=== PATIENT | male | born 1985 | race Hispanic/Latino ===

== ENCOUNTER 2018-08-13 | Emergency (ER) | payer SELFPAY ==
[2018-08-13 01:32] LABS: Absolute Lymphocytes (CBC) 3.2 K/uL (0.7-4.9); Absolute Monocytes 0.6 K/uL (0.1-1.3); Absolute Neutrophil 5.6 K/uL (1.8-8.0); Barbiturates NEGATIVE (NEGATIVE); Basophils % 0.5 % (0-1.3); Benzodiazepines NEGATIVE (NEGATIVE); Cocaine NEGATIVE (NEGATIVE); Hematocrit 42.3 % (39.6-49.0); Lymphocytes % 32.9 % (15.3-44.8); MCH 29.6 pg (27.0-35.0); MCV 84.9 fL (80-100); METHAMPHETAM NEGATIVE (NEGATIVE); MPV 9.1 fL (7.6-11.3); Methadone NEGATIVE (NEGATIVE); Monocytes % 6.3 % (3.3-12.3); Opiates NEGATIVE (NEGATIVE); Phencyclidine NEGATIVE (NEGATIVE); Protime INR 1.08; RBC Red Blood Cell Count 4.99 M/uL (4.33-5.43); THC Cannibis NEGATIVE (NEGATIVE)
[2018-08-13 01:41] LABS: ALT/SGPT 31 U/L (12-78); AST/SGOT 13 U/L (15-37); Albumin 3.5 g/dL (3.4-5.0); Alkaline Phosphatase 75 U/L (45-117); BUN Blood Urea Nitrogen 14 mg/dL (7-18); Bicarbonate 29 mmol/L (21-32); Bilirubin Direct 0.1 mg/dL (0-0.2); Bilirubin Total 0.3 mg/dL (0.2-1.0); Glucose Level 112 mg/dL (74-106); Potassium 3.5 mmol/L (3.5-5.1); Protein, Total 7.3 g/dL (6.4-8.2); Sodium Level 142 mmol/L (136-145); Troponin (Emerg Dept Use Only) < 0.02 ng/mL (0.0-0.045)
[2018-08-13 01:46] LABS: Urine Blood 1+ (NEG); Urine Glucose NEGATIVE (NEG)
[2018-08-13 01:47] LABS: Urine Protein NEGATIVE (NEG)
--- NOTE | 2018-08-13 03:25 | ER ---
Nurse's Notes [facility] Name: Toni Crockett Age: 33 yrs Sex: Male : 1985 Arrival Date: 08/13/2018 Time: 00:03 Bed 18 Private MD: Diagnosis: Chest pain;Intermittent palpitations Presentation: 08/13 00:05 Presenting complaint: Patient states: he had an episode of chest pain tonight and got bb worried because he had similar symptoms two other times in the last month denies SOB, nausea, pain is non-radiating and currently has resolved. Transition of care: patient was not received from another setting of care. Onset of symptoms was August 13, 2018. Risk Assessment: Do you want to hurt yourself or someone else? Patient reports no desire to harm self or others. Initial Sepsis Screen: Does the patient meet any 2 criteria? No. Patient's initial sepsis screen is negative. Does the patient have a suspected source of infection? No. Patient's initial sepsis screen is negative. Care prior to arrival: None. 00:05 Method Of Arrival: Ambulatory bb 00:05 Acuity: FELIX 3 bb Triage Assessment: 00:35 General: Appears in no apparent distress. Behavior is calm, cooperative. Pain: Denies bb pain. Neuro: Level of Consciousness is awake, alert, obeys commands, Oriented to person, place, time, Appropriate for age. Cardiovascular: Heart tones S1 S2 present Capillary refill < 3 seconds Patient's skin is warm and dry. Pulses are all present. Edema is absent. Rhythm is sinus rhythm. Respiratory: Respiratory effort is even, unlabored. GI: No signs and/or symptoms were reported involving the gastrointestinal system. Derm: Skin is pink, warm \T\ dry. Musculoskeletal: Circulation, motion, and sensation intact. Historical: - Allergies: 00:35 No Known Allergies; bb - Home Meds: 00:35 None [Active]; bb - PMHx: 00:35 None; bb - PSHx: 00:35 disc surgery; bb - Immunization history:: Adult Immunizations up to date. - Social history:: Smoking status: Patient/guardian denies using tobacco, Patient uses alcohol, but reports only rare drinking. Patient/guardian denies using street drugs. - Ebola Screening: : No symptoms or risks identified at this time. - Family history:: not pertinent. - Hospitalizations: : No recent hospitalization is reported. Screenin:09 Abuse screen: Denies threats or abuse. Denies injuries from another. Nutritional rv screening: No deficits noted. Tuberculosis screening: No symptoms or risk factors identified. Fall Risk None identified. Assessment: 01:07 General: Appears in no apparent distress. comfortable, Behavior is calm, cooperative. rv Pain: Complains of pain in chest Pain does not radiate. Pain began suddenly. Neuro: Level of Consciousness is awake, alert, obeys commands, Oriented to person, place, time, situation. Cardiovascular: Capillary refill < 3 seconds Rhythm is regular. Respiratory: Airway is patent. GI: No signs and/or symptoms were reported involving the gastrointestinal system. : No signs and/or symptoms were reported regarding the genitourinary system. EENT: No signs and/or symptoms were reported regarding the EENT system. Derm: Skin is intact. Musculoskeletal: No signs and/or symptoms reported regarding the musculoskeletal system. 02:13 Reassessment: Patient appears in no apparent distress at this time. Patient and/or rr5 family updated on plan of care and expected duration. Pain level reassessed. Patient is alert, oriented x 3, equal unlabored respirations, skin warm/dry/pink. awaiting for blood reports Patient denies pain at this time. Patient states feeling better. Patient states symptoms have improved. 03:15 Reassessment: Patient appears in no apparent distress at this time. Patient and/or rr5 family updated on plan of care and expected duration. Pain level reassessed. Patient is alert, oriented x 3, equal unlabored respirations, skin warm/dry/pink. Patient denies pain at this time. Patient states feeling better. Patient states symptoms have improved. 03:39 Reassessment: Patient appears in no apparent distress at this time. Patient and/or rr5 family updated on plan of care and expected duration. Pain level reassessed. Patient is alert, oriented x 3, equal unlabored respirations, skin warm/dry/pink. patient is discharged with instruction .denies any pain and no complaints made .vitally stable. Patient denies pain at this time. Patient states feeling better. Patient states symptoms have improved. Vital Signs: 00:10 BP 139 / 76; Pulse 81; Resp 16 S; Temp 98.8(O); Pulse Ox 98% on R/A; Weight 127.01 kg bb (R); Height 5 ft. 11 in. (180.34 cm) (R); Pain 0/10; 02:12 BP 131 / 98; Pulse 69; Resp 14; Pulse Ox 97% on R/A; Pain 0/10; rr5 03:15 BP 119 / 89; Pulse 72; Resp 17; Pulse Ox 99% on R/A; Pain 0/10; rr5 00:10 Body Mass Index 39.05 (127.01 kg, 180.34 cm) ED Course: 00:03 Patient arrived in ED. es 00:10 Arm band placed on Patient placed in an exam room, on a stretcher. bb 00:12 EKG completed in triage. Results shown to MD. bb 00:33 Silver Robertson MD is Attending Physician. wa 00:35 Triage completed. bb 00:51 Patient moved to radiology via wheelchair. sg4 01:00 Inserted saline lock: 20 gauge in left forearm, using aseptic technique. Blood rv collected. 01:08 Initial lab(s) drawn, by wa, sent to lab. Urine collected: clean catch specimen, clear, rv Legal drug screen obtained per protocol. 01:09 Patient has correct armband on for positive identification. Placed in gown. Bed in low rv position. Call light in reach. Side rails up X 1. nuclear monitoring technician on. Pulse ox on. NIBP on. 01:09 Patient maintains SpO2 saturation greater than 95% on room air. rv 01:18 X-ray completed. Patient tolerated procedure well. sg4 02:11 Neftali Roberts, MALIKA is Primary Nurse. rr5 02:33 Chest Pa And Lat (2 Views) XRAY In Process Unspecified. EDMS 03:25 Fabricio Bernstein MD is Referral Physician. wa 03:40 No provider procedures requiring assistance completed. IV discontinued, bleeding rr5 controlled, Pressure dressing applied. Administered Medications: No medications were administered Outcome: 03:24 Discharge ordered by . wa 03:40 Discharged to home ambulatory. rr5 03:40 Condition: stable 03:40 Discharge instructions given to patient, Instructed on discharge instructions, follow up and referral plans. Demonstrated understanding of instructions, follow-up care. 03:41 Patient left the ED. rr5 Signatures: Dispatcher [employer] EDDayis Snider Brenda RN RN bb Silver Robertson MD MD wa Vicente, Ronaldo, RN RN rv Laura Donaldson 4 Neftali Roberts RN RN rr5
--- NOTE | 2018-08-13 03:25 | EDPHYS ---
Physician Documentation [facility] Name: Toni Crockett Age: 33 yrs Sex: Male : 1985 Arrival Date: 08/13/2018 Time: 00:03 Bed 18 Private MD: ED Physician Silver Robertson HPI: 08/13 04:00 This 33 yrs old Male presents to ER via Ambulatory with complaints of Chest wa Pain. 04:00 The patient or guardian reports chest pain that is located primarily in the substernal wa area, pressure in middle of chest. lasted 30 min. 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 h/o same intermittently for the past month and a half. denies SOB. denies pain radiation. states 4th time it has happened in the past month and a half. denies pain or palpitations now in ED. The pain does not radiate. Associated signs and symptoms: The patient has no apparent associated signs or symptoms. The chest pain is described as a pressure. Duration: The patient or guardian reports a single episode, that lasted 30 minute(s). Modifying factors: The symptoms are alleviated by nothing. the symptoms are aggravated by nothing. Severity of pain: At its worst the pain was moderate in the emergency department the pain has resolved. The patient has experienced similar episodes in the past, a few times. The patient has not recently seen a physician. denies ingestion of recreational stimulants or any drugs. does not smoke. Historical: - Allergies: 00:35 No Known Allergies; bb - Home Meds: 00:35 None [Active]; bb - PMHx: 00:35 None; bb - PSHx: 00:35 disc surgery; bb - Immunization history:: Adult Immunizations up to date. - Social history:: Smoking status: Patient/guardian denies using tobacco, Patient uses alcohol, but reports only rare drinking. Patient/guardian denies using street drugs. - Ebola Screening: : No symptoms or risks identified at this time. - Family history:: not pertinent. - Hospitalizations: : No recent hospitalization is reported. ROS: 04:03 Constitutional: Negative for fever, chills, and weight loss, Eyes: Negative for injury, wa pain, redness, and discharge, ENT: Negative for injury, pain, and discharge, Neck: Negative for injury, pain, and swelling, Respiratory: Negative for shortness of breath, cough, wheezing, and pleuritic chest pain, Abdomen/GI: Negative for abdominal pain, nausea, vomiting, diarrhea, and constipation, Back: Negative for injury and pain, : Negative for injury, bleeding, discharge, and swelling, MS/Extremity: Negative for injury and deformity, Skin: Negative for injury, rash, and discoloration, Neuro: Negative for headache, weakness, numbness, tingling, and seizure, Psych: Negative for depression, anxiety, suicide ideation, homicidal ideation, and hallucinations. 04:03 Cardiovascular: Positive for chest pain, palpitations, Negative for edema, orthopnea, paroxysmal nocturnal dyspnea. Exam: 04:04 Constitutional: This is a well developed, well nourished patient who is awake, alert, wa and in no acute distress. Head/Face: Normocephalic, atraumatic. Eyes: Pupils equal round and reactive to light, extra-ocular motions intact. Lids and lashes normal. Conjunctiva and sclera are non-icteric and not injected. Cornea within normal limits. Periorbital areas with no swelling, redness, or edema. ENT: Nares patent. No nasal discharge, no septal abnormalities noted. Tympanic membranes are normal and external auditory canals are clear. Oropharynx with no redness, swelling, or masses, exudates, or evidence of obstruction, uvula midline. Mucous membranes moist. Neck: Trachea midline, no thyromegaly or masses palpated, and no cervical lymphadenopathy. Supple, full range of motion without nuchal rigidity, or vertebral point tenderness. No Meningismus. Chest/axilla: Normal chest wall appearance and motion. Nontender with no deformity. No lesions are appreciated. Respiratory: Lungs have equal breath sounds bilaterally, clear to auscultation and percussion. No rales, rhonchi or wheezes noted. No increased work of breathing, no retractions or nasal flaring. Abdomen/GI: Soft, non-tender, with normal bowel sounds. No distension or tympany. No guarding or rebound. No evidence of tenderness throughout. Back: No spinal tenderness. No costovertebral tenderness. Full range of motion. Skin: Warm, dry with normal turgor. Normal color with no rashes, no lesions, and no evidence of cellulitis. MS/ Extremity: Pulses equal, no cyanosis. Neurovascular intact. Full, normal range of motion. Neuro: Awake and alert, GCS 15, oriented to person, place, time, and situation. Cranial nerves II-XII grossly intact. Motor strength 5/5 in all extremities. Sensory grossly intact. Cerebellar exam normal. Normal gait. Psych: Awake, alert, with orientation to person, place and time. Behavior, mood, and affect are within normal limits. 04:04 Cardiovascular: Rate: normal, Rhythm: regular, Pulses: no pulse deficits are appreciated, Heart sounds: normal, Edema: is not appreciated, JVD: is not appreciated. Vital Signs: 00:10 BP 139 / 76; Pulse 81; Resp 16 S; Temp 98.8(O); Pulse Ox 98% on R/A; Weight 127.01 kg bb (R); Height 5 ft. 11 in. (180.34 cm) (R); Pain 0/10; 02:12 BP 131 / 98; Pulse 69; Resp 14; Pulse Ox 97% on R/A; Pain 0/10; rr5 03:15 BP 119 / 89; Pulse 72; Resp 17; Pulse Ox 99% on R/A; Pain 0/10; rr5 00:10 Body Mass Index 39.05 (127.01 kg, 180.34 cm) bb MDM: 00:34 Patient medically screened. wa 04:04 Differential diagnosis: possible intermittent dysrhythmia. consider ACS. will work up wa and reassess. Data reviewed: vital signs, nurses notes, lab test result(s), EKG, radiologic studies. Test interpretation: by ED physician or midlevel provider: labs noted normal. CXR: negative for acute process. Response to treatment: the patient's symptoms have resolved after treatment. ED course: remained asymptomatic entire ED stay. HEART score low. will benefit from close f/u with cardiology. may need a holter. 08/13 00:45 Order name: Basic Metabolic Panel; Complete Time: 08/13 00:45 Order name: CBC with Diff; Complete Time: 08/13 00:45 Order name: LFT's; Complete Time: 08/13 00:45 Order name: PT-INR; Complete Time: :08/13 00:45 Order name: Troponin (emerg Dept Use Only); Complete Time: 08/13 00:45 Order name: UDS; Complete Time: :09 00:45 Order name: O2 Sat Monitoring; Complete Time: : ia 08/13 00:45 Order name: EKG; Complete Time: 02:32 ia 08/13 00:45 Order name: Cardiac monitoring; Complete Time: : ia 08/13 00:45 Order name: EKG - Nurse/Tech; Complete Time: : ia 08/13 00:45 Order name: IV Saline Lock; Complete Time: : ia 08/13 00:45 Order name: Labs collected and sent; Complete Time: ia 08/13 00:45 Order name: Chest Pa And Lat (2 Views) XRAY ia 08/13 01:19 Order name: Urine Dipstick--Ancillary (enter results); Complete Time: 02:49 [facility] 08/13 00:45 Order name: O2 Per Protocol; Complete Time: : ia Administered Medications: No medications were administered Disposition: 08/13/18 03:24 Discharged to Home. Impression: Chest pain, Intermittent palpitations. - Condition is Stable. - Discharge Instructions: Nonspecific Chest Pain, Palpitations, [id number]. - Medication Reconciliation Form, Thank You Letter, Antibiotic Education, Prescription Opioid Use form. - Follow up: Private Physician; When: 2 - 3 days; Reason: Recheck today's complaints. Follow up: Fabricio Bernstein MD; When: 1 - 2 days; Reason: Recheck today's complaints. - Problem is new. - Symptoms have improved. - Notes: follow up with the porter sample case next available business day by calling for appointment. you may need monitoring for your heart. return here immediately for worsening symptoms Signatures: Dispatcher [employer] Maricarmen Thapa RN RN Silver Adams MD MD wa Roque, Raymond RN RN rr5 Corrections: (The following items were deleted from the chart) 03:25 03:24 08/13/2018 03:24 Discharged to Home. Impression: Chest pain; Intermittent wa palpitations. Condition is Stable. Forms are Medication Reconciliation Form, Thank You Letter, Antibiotic Education, Prescription Opioid Use. Follow up: Private Physician; When: 2 - 3 days; Reason: Recheck today's complaints. Problem is new. Symptoms have improved. ia 03:41 03:25 08/13/2018 03:24 Discharged to Home. Impression: Chest pain; Intermittent rr5 palpitations. Condition is Stable. Forms are Medication Reconciliation Form, Thank You Letter, Antibiotic Education, Prescription Opioid Use. Follow up: Private Physician; When: 2 - 3 days; Reason: Recheck today's complaints. Follow up: Fabricio Bernstein; When: 1 - 2 days; Reason: Recheck today's complaints. Problem is new. Symptoms have improved. wa
--- NOTE | 2018-08-13 07:07 | EKG ---
Test Date: 2018-08-13 Test Time: 00:12:41 Claims Adjustor: JELLY MEASUREMENT RESULTS: Intervals: Rate: 83 VT: 146 QRSD: 96 QT: 344 QTc: 404 [place]: P: 30 VT: 146 QRS: -16 T: 37 INTERPRETIVE STATEMENTS: Normal sinus rhythm Minimal voltage criteria for LVH, may be normal variant Borderline ECG No previous ECG available for comparison Electronically Signed On 08-13-18 07:06:52 FOOD PRODUCTION ASSOCIATE by Fabricio Bernstein
--- NOTE | 2018-08-13 08:13 | RAD REPORT ---
EXAM DESCRIPTION: Sarah Boles (2 Views)08/13/2018 1:22 am CLINICAL HISTORY: Chest pain COMPARISON: None FINDINGS: The lungs appear clear of acute infiltrate. The heart is normal size IMPRESSION: No acute abnormalities displayed
== END 2018-08-13 03:41 | disposition home or self-care (01) ==
LOC: ER
DX: R00.2 Palpitations (principal)
CPT/HCPCS: 36415; 71046; 80048; 80076; 80307; 81003; 84484; 85025; 85610; 93005; 99285